=== PATIENT | male | born 1945 | race Caucasian/White ===

== ENCOUNTER 2019-09-18 10:03 | Outpatient (CLI) | payer MEDICARE, SELFPAY ==
[2019-09-18] VITALS (9 sets, daily range): BP systolic 115–138; BP diastolic 76–88; PULSE 68–72; RESP 16; TEMP 36.2; O2SAT 95–97
--- NOTE | 2019-09-18 10:06 | DI.RAD.S_ITS ---
PROCEDURE: PAIN C/T INTERLAMINAR INJECT INDICATIONS: CERVICAL DISC DISPLACEMENT FINDINGS: Fluoroscopic spot filming was performed to verify placement of spinal needles at the C7-T1 level(s), as labeled on the films. Appropriate location(s) of the needle tip(s) was confirmed by injection of iodinated contrast. Dictated by: Francisco Javier Souza M.D. on 09/18/2019 at 12:23 Approved by: Francisco Javier Souza M.D. on 09/18/2019 at 12:24
[2019-09-18] MEDS: MIDAZOLAM 5 MG/5 ML VIAL IV (11:52)
[2019-09-18] MEDS: DEXAMETHASONE 10 MG/ML VIAL 20 MG INJ (11:58)
[2019-09-18] MEDS: IOPAMIDOL 15 ML VIAL 3 ML INJ (11:58)
[2019-09-18] MEDS: BUPIVACAINE 0.25% (PF) VIAL 2 ML INJ (11:59)
--- NOTE | 2019-09-18 12:02 | PC.NURSE ---
ASSISTING PT OFF TABLE AND TRANSPORTING TO POST PROC AREA IN STABLE CONDITION. PASSING RN CARE OF PT TO CICI Mazariegos RN
--- NOTE | 2019-09-18 12:09 | P.PCN_ITS ---
Procedures Date/Time Date of procedure: 09/18/19 Time of procedure: 12:09 General Procedure description: PREOP DIAGNOSIS 1. CERVICAL STENOSIS, 2. CERVICAL HNP WITH UPPER EXTREMITY RADICULAR FEATURES, POST OP DIAGNOSIS 1. CERVICAL STENOSIS, 2. CERVICAL HNP WITH UPPER EXTREMITY RADICULAR FEATURES, PROCEDURES 1. FLUORSCOPICALLY GUIDED CONTRAST CONTROLLED INTERLAMINAR EPIDURAL STEROID INJECTION - C7/T1 TL DEBBI, PHYSICIAN: Omer Jarrell DO INDICATIONS: Cabrera is referred by for treatment of Cervical Stenosis. FINDINGS Cervical Stenosis due to disc deterioration and nerve root irritation and nerve root irritation DESCRIPTION OF PROCEDURE Fluoroscopically guided, contrast-controlled C7/T1 translaminar epidural steroid injection with conscious sedation. Following review of allergy and review of potential side effects and complications, including, but not necessarily limited to, infection, allergic reaction, local tissue breakdown, temporary as well as permanent nerve injury, stroke, paralysis, and possible , the patient indicated that patient understood and agreed to proceed. An informed consent document was signed by the patient, witnessed by a nurse, and placed in the patient's chart. Additionally, other treatment options including modalities, medications, and physical therapy were reviewed with the patient. After review of previous anaesthesic history and IV conscious sedation the pa tient was deemed safe to proceed with todays procedure with IV conscious sedation as ASA class II designation. Safety time-out was performed to confirm patient ID, procedure to be performed and site of procedure. IV sedation was accomplished with 2mg of Versed administered by the RN after DO order, titrated to patient comfort during the course of the procedure while the patient remained responsive to all verbal commands. In the prone position, following sterile prep and drape of the cervical region, the C7/T1 translaminar space was identified fluoroscopically. The skin was anesthetized via a 25-gauge 1.5-inch needle with 1% lidocaine solution. At this point, a 25-gauge, 3.5-inch short bevel spinal needle was atraumatically introduced and advanced under fluoroscopic guidance into epidural space at the C7/T1 translaminar space. Depth was confirmed on lateral view. Radiological data, including multiple fluoroscopic views of the cervical spine, reveal a spinal needle at the C7/T1 translaminar space. Lateral views then show placement of the needle in the epidural space. Subsequent views show contrast material flowing superiorly and inferiorly in the epidural space. DSA fluorosco py with live contrast injection, once again, confirmed no vascular or intrathecal uptake. At this point, using loss of resistance technique with saline and air, the epidural space was entered. Following negative aspiration, injection of approximately 1.5 cc of Isovue-200 with live fluoroscopy in the AP view confirmed epidural flow in the epidural space without vascular or intrathecal uptake observed. Subsequently, a test dose of 1 cc of 1% lidocaine solution was injected and patient was observed for two minutes without signs or symptoms of complications, including abdominal pain, shortness of breath, bilateral upper or lower extremity weakness, nausea and vomiting, prior to steroid injection. At this point, 2cc or 20mg of dexamethasone was then injected without incident. The patient tolerated the procedure well without signs or symptoms of complications prior to transfer to the recovery area for further monitoring The patient was then transferred to the recovery area where they were observed for an appropriate period of time after the injection. The patient reported a VAS score of 6 prior to the procedure and a post-procedure VAS of 0. Total Fluoroscopy Time: 21 seconds Total Conscious Sedation Time: 24min POST OP INSTRUCTIONS The patient was provided a Pain Log to continue to record their response to the target-specific procedure prior to follow-up visit with the referring provider. Additionally, specific post-injection care instructions and a contact number to our office were provided if concerns arise regarding possible complications associated with the procedure are suspected. Omer Jarrell DO Complications: none
--- NOTE | 2019-09-18 12:46 | PC.NURSE ---
Post procedure note: Patient arrived at 1210. Awake and alert. Able to transfer from w/c to recliner with stand by assist. VSS on arrival. O2 Sat WNL. 0/10 pain level. Denies any unusual numbness or tingling to upper extremity. Handoff report received from Sary Gamino RN. Discharge instructions reviewed with patient and with good understanding. Discharged to small waiting room Ambulated. Waiting for diagnostic XRay
--- NOTE | 2019-09-18 13:04 | DI.RAD.S_ITS ---
PROCEDURE: XR LUMBAR SPINE MIN 4V INDICATIONS: post lami syndrome TECHNIQUE: 5 views of the lumbar spine were acquired. COMPARISON: None. FINDINGS: Bones: 5 nonrib-bearing vertebrae are present. There is mild straightening of normal lumbar curvature. There is trace retrolisthesis of L1 on L2, L2 on L3. Severe disc and foraminal narrowing are noted L5-S1. Moderate disc space narrowing is present at L4-5, minimal to mild throughout the remainder of the lumbar spine. Small anterior osteophytes are present. No vertebral body compression fractures. No suspicious bony lesions. Soft tissues: Overlying bowel gas pattern is normal. No suspicious soft tissue calcifications. Oblique images: No pars defects. IMPRESSION: Multilevel degenerative changes most severe at L5-S1. Dictated by: Kiara Merritt M.D. on 09/18/2019 at 16:16 Approved by: Kiara Merritt M.D. on 09/18/2019 at 16:17
== END 2019-09-18 12:43 | disposition home or self-care (01) ==
PROVIDERS: PCP Internal Medicine; Visit Provider Physical Medicine & Rehabilitation
DX: M48.02 Spinal stenosis, cervical region (principal); M50.13 Cervical disc disorder with radiculopathy, cervicothoracic region
CPT/HCPCS: 62321; 72110; J1100; J2250; J3010

== ENCOUNTER → 2019-09-21 15:57 | Outpatient (CLI) | payer MEDICARE, SELFPAY ==
--- NOTE | 2019-09-21 15:59 | DI.MRI.S_ITS ---
PROCEDURE: MR LUMBAR SPINE WO CON INDICATIONS: post lami syndrome TECHNIQUE: Noncontrast sagittal T1 spin echo and T2 fast echo, sagittal STIR, axial T1 and T2 fast spin echo through the lumbar spine. In cases with scoliosis, additional coronal T2 fast spin echo may be performed. COMPARISON: [facility], CR, XR LUMBAR SPINE MIN 4V, 09/18/2019, 13:02. FINDINGS: Image quality: Excellent. Alignment and Curvature: There is normal bony alignment. Bone Marrow: Marrow is of normal overall signal. No acute vertebral body compression fractures. Spinal Cord: Conus medullaris terminates at the L1 level. Visualized cord demonstrates normal signal and size. Paraspinous Soft Tissues: No paravertebral masses. T12-L1: Normal appearance. L1-L2: Normal appearance. L2-L3: Mild loss of disc height is seen. Loss of disc signal is seen. Moderate disc bulge is seen. There is moderate right-sided and at least moderate left-sided neural foraminal narrowing seen. There is a mild degree of compression exiting left L2 nerve root. Mild central canal narrowing is seen. An annular fissure is present posteriorly, as on series 2 image 12. L3-L4: The disc height is well-preserved. Loss of disc signal is seen at this level. There is a focal annular fissure seen posteriorly. Moderate generalized disc bulge is seen. Mild facet joint hypertrophy is seen. There is moderate right-sided and moderate to severe left-sided neural foraminal narrowing seen. There is a degree of compression seen upon the exiting left L3 nerve root. Moderate central canal narrowing is seen. L4-L5: Mild loss of disc height is seen. Loss of disc signal is seen. Moderate to prominent disc bulge is seen, which is eccentric to the right. Moderate to severe bilateral neural foraminal narrowing is seen, with associated compression upon the exiting nerve roots. Mild central canal narrowing is seen. L5-S1: There is a degree of vertebral body fusion seen at this level. Mild to moderate disc bulge is seen. Bridging anterior osteophytes can be seen, particularly on the right side. There is moderate to severe right-sided neural foraminal narrowing seen, with associated mild compression upon the exiting right L5 nerve root. Minimal to mild central canal narrowing is seen. IMPRESSION: Partial vertebral body fusion at L5-S1. Numerous levels of degenerative change are seen, with several levels of moderate to severe neural foraminal narrowing with associated exiting nerve compression. Dictated by: Mookie Hernandez M.D. on 09/21/2019 at 16:36 Approved by: Mookie Hernandez M.D. on 09/21/2019 at 16:43
== END ==
PROVIDERS: PCP Internal Medicine; Visit Provider Physical Medicine & Rehabilitation
DX: M96.1 Postlaminectomy syndrome, not elsewhere classified (principal); M47.27 Other spondylosis with radiculopathy, lumbosacral region; M47.26 Other spondylosis with radiculopathy, lumbar region
CPT/HCPCS: 72148

== ENCOUNTER 2019-10-19 14:30 | Outpatient (CLI) | payer MEDICARE, SELFPAY ==
[2019-10-19] VITALS (8 sets, daily range): BP systolic 117–138; BP diastolic 65–86; PULSE 75–894; RESP 14–16; TEMP 36.4; O2SAT 93–96
--- NOTE | 2019-10-19 14:33 | DI.RAD.S_ITS ---
PROCEDURE: PAIN L/S FACET INJ/BLK 1ST STEPHANIE COMPARISON: None. INDICATIONS: SPONDYLOSIS FINDINGS: Needle tip localization is documented at the facet joints of L3-4 and L4-L5 bilaterally. IMPRESSION: Normal needle tip localization for bilateral lower lumbosacral spine facet joint injections with steroid solution. 4 total procedures. Dictated by: Nick Don M.D. on 10/19/2019 at 16:32 Approved by: Nick Don M.D. on 10/19/2019 at 16:34
[2019-10-19] MEDS: MIDAZOLAM 5 MG/5 ML VIAL IV (15:10)
[2019-10-19] MEDS: fentaNYL 100 MCG/2 ML INJ 50 MCG IV (15:10)
[2019-10-19] MEDS: BETAMETHASONE 30 MG/5 ML MDV 12 MG INJ (15:14)
[2019-10-19] MEDS: IOPAMIDOL 15 ML VIAL 3 ML INJ (15:14)
--- NOTE | 2019-10-19 15:21 | PC.NURSE ---
ASSISTING PT OFF TABLE AND TRANSPORTING TO POST PROC AREA IN STABLE CONDITION. PASSING RN CARE OF PT TO PAXTON Victor RN.
--- NOTE | 2019-10-19 15:24 | P.PCN_ITS ---
Procedures Date/Time Date of procedure: 10/19/19 Time of procedure: 15:24 General Procedure description: PREOP DIAGNOSIS 1. FACET ARTHROPATHY 2. AXIAL LBP 3. MULTILEVEL DDD POST OP DIAGNOSIS 1. FACET ARTHROPATHY 2. AXIAL LBP 3. MULTILEVEL DDD PROCEDURES 1. FLUORSCOPICALLY GUIDED CONTRAST CONTROLLED FACET JOINT INJECTIONS BILATERAL L4/5, L5/S1 PHYSICIAN: Omer Jarrell, DO INDICATIONS Cabrera is referred by Dr. Vu for treatment of Axial LBP FINDINGS Multilevel Facet Arthropathy with Clinically significant axial LBP DESCRIPTION OF PROCEDURE Fluoroscopically guided, contrast-controlled bilateral L4/5, L5/S1 facet joint injections. Following review of allergy and review of potential side effects and complications, including, but not necessarily limited to, infection, allergic reaction, local tissue breakdown, stroke, temporary or permanent nerve injury, paralysis, and possible , the patient indicated that the patient understood and agreed to proceed. An informed consent document was signed by the patient, witnessed by a nurse, and placed in the patient's chart. Additionally, other treatment options including medications, modalities, and physical therapy were reviewed with the patient. After review of previous anaesthesic history and IV conscious sedation the patient was deemed safe to proceed with todays procedure with IV conscious sedation as ASA class II designation. Safety time-out was performed to confirm patient ID, procedure to be performed and site of procedure. IV sedation was accomplished with a combination of 2mg of Versed and 50mcg of Fentanyl was administered by the RN after DO order, titrated to patient comfort during the course of the procedure while the patient remained responsive to all verbal commands In the prone position, following sterile prep and drape of the lumbar region, the posterior aspect of the L4/5, L5/S1 facet joints were identified fluoroscopically. The skin was anesthetized via a 25-gauge 1.5-inch needle with 1% lidocaine solution. At this point, a 22-gauge 3.5-inch spinal needle was atraumatically introduced and advanced under fluoroscopic guidance into the corresponding facet joints. Following negative aspiration, injections of approximately 0.2cc of Isovue 200 confirmed interarticular placement without vascular uptake. The identical procedure was then performed at the L4/5, L5/S1 facet joints on the left. Radiological data, including multiple fluoroscopic views of the lumbosacral spine, reveal a spinal needle at the L4/5, L5/S1 facet joints bilaterally. Subsequent views show flow of contrast material both superiorly and inferiorly within the joint space without vascular or intrathecal uptake. At this point, a total of 0.5cc including a mixture of 0.25cc 2% lidocaine and 0.25cc betamethasone was injected without complication into each of the corresponding facet joints. The patient tolerated the procedure well without signs or symptoms of complications prior to transfer to the recovery area continued monitoring w ithout incident. The patient was then transferred to the recovery area where they were observed for an appropriate period of time after the injection. The patient reported a VAS score of 7 prior to the procedure and a post- procedure VAS of 0. Total Fluoroscopy Time: 10 seconds Total Conscious Sedation Time: 24min POST OP INSTRUCTIONS The patient was provided a Pain Log to continue to record their response to the target-specific procedure prior to follow-up visit with their referring physician. Additionally, specific post-injection care instructions and a contact number to our office were provided if concerns arise regarding possible complications associated with the procedure are suspected. Omer Jarrell, Complications: none
--- NOTE | 2019-10-19 15:38 | PC.NURSE ---
at 1533 returned from procedure via w/c, able to transfer self to recliner, pain free, ice water provided and tolerated. assumed care from Odette Francisco
== END 2019-10-19 15:47 | disposition home or self-care (01) ==
LOC: RAD 14:31
PROVIDERS: PCP Internal Medicine; Referring Provider Physical Medicine & Rehabilitation; Visit Provider Physical Medicine & Rehabilitation
DX: M47.816 Spondylosis without myelopathy or radiculopathy, lumbar region (principal); M47.817 Spondylosis without myelopathy or radiculopathy, lumbosacral region; M54.5 Low back pain; M51.36 Other intervertebral disc degeneration, lumbar region; M51.37 Other intervertebral disc degeneration, lumbosacral region
CPT/HCPCS: 64493; 64494; 99152; J0702; J2250; J3010